=== PATIENT | female | born 1940 | race Caucasian/White ===

== ENCOUNTER 2018-09-22 10:42 | Inpatient (IN) | payer OTHER, MEDICAID ==
[2018-09-22] MEDS ORDERED: NS 1,000 ML IV ONE (10:50)
--- NOTE | 2018-09-22 10:56 | EDPHY ---
H & P Stated Complaint: generalized weakness, not feeling well, hip pain Time Seen by Provider: 09/22/18 10:44 HPI/ROS: CHIEF COMPLAINT: Difficulty ambulating HISTORY OF PRESENT ILLNESS: The patient is a 78-year-old female who comes to the emergency department via EMS. She told them that she had been feeling weak for the last month ever since she finished a 3 day course of Bactrim for urinary tract infection. She told paramedics that she was worried that if she fell down she could not get back up. Her daughter has been out of town for the last 3 days at a wedding. Patient denies generalized weakness to me but states however that she has left hip pain. 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 She denies any trauma. No fevers. No erythema or swelling. No urinary symptoms. She denies having weakness in her upper extremity or torso. No significant knee or ankle pain. No low back pain. Severity: Moderate Modifying factors: None REVIEW OF SYSTEMS: Constitutional: denies: chills, fever, recent illness, recent injury EENTM: denies: blurred vision, double vision, nose congestion Respiratory: denies: cough, shortness of breath Cardiac: denies: chest pain, irregular heart rate, lightheadedness, palpitations Gastrointestinal/Abdominal: denies: abdominal pain, diarrhea, nausea, vomiting, blood streaked stools Genitourinary: denies: dysuria, frequency, hematuria, pain Musculoskeletal: denies: joint pain, muscle pain Skin: denies: lesions, rash, jaundice, bruising Neurological: denies: headache, numbness, paresthesia, tingling, dizziness, weakness Hematologic/Lymphatic: denies: blood clots, easy bleeding, easy bruising Immunologic/allergic: denies: HIV/AIDS, transplant 10 systems reviewed and negative except as noted EXAM: GENERAL: Well-appearing, well-nourished and in no acute distress. HEAD: Atraumatic, normocephalic. EYES: Pupils equal round and reactive to light, extraocular movements intact, sclera anicteric, conjunctiva are normal. ENT: TMs normal, nares patent, oropharynx clear without exudates. Moist mucous membranes. NECK: Normal range of motion, supple without lymphadenopathy or JVD. LUNGS: Breath sounds clear to auscultation bilaterally and equal. No wheezes rales or rhonchi. HEART: Regular rate and rhythm without murmurs, rubs or gallops. ABDOMEN: Soft, nontender, normoactive bowel sounds. No guarding, no rebound. No masses appreciated. : Rectal exam normal, no obvious bleeding BACK: No CVA tenderness, no spinal tenderness, step-offs or deformities EXTREMITIES: Normal range of motion, no pitting or edema. No clubbing or cyanosis. Subjective pain in left hip. No appreciable pain with passive movement or axial loading. NEUROLOGICAL: Cranial nerves II through XII grossly intact. Normal speech, normal gait. 4-5 strength in left leg seems to be limited by pain, 5/5 in other extremities., normal movement in all extremities, normal sensation, normal reflexes PSYCH: Normal mood, normal affect. SKIN: Warm, dry, normal turgor, no visible rashes or lesions. Source: Patient Exam Limitations: No limitations - Personal History Current Tetanus/Diphtheria Vaccine: Unsure Current Tetanus Diphtheria and Acellular Pertussis (TDAP): Unsure - Medical/Surgical History Hx Asthma: Yes Hx Chronic Respiratory Disease: No Hx Diabetes: No Hx Cardiac Disease: No Hx Renal Disease: No Hx Cirrhosis: No Hx Alcoholism: No Hx HIV/AIDS: No Hx Splenectomy or Spleen Trauma: No - Family History Significant Family History: No pertinent family hx - Social History Smoking Status: Never smoked Alcohol Use: None Constitutional: Initial Vital Signs Temperature (C) 36.9 C 09/22/18 10:47 Heart Rate 93 09/22/18 10:47 Respiratory Rate 18 09/22/18 10:47 Blood Pressure 130/70 H 09/22/18 10:47 O2 Sat (%) 93 09/22/18 10:47 O2 Delivery Mode Room Air Allergies/Adverse Reactions: cat dander Allergy (Verified 09/22/18 13:44) cephalexin [From Keflex] Allergy (Verified 09/22/18 13:44) Hives Home Medications: Medication Instructions Recorded Chlorthalidone [Chlorthalidone 25 25 mg PO DAILY 09/22/18 mg (*)] Fluticasone Hfa 110 Mcg [Flovent 1 puffs IH DAILY@12 09/22/18 110 MCG Hfa MDI (*)] Herbals/Supplements -Info Only 1 ea PO DAILY 09/22/18 Ibuprofen [Motrin (*)] 200 mg PO DAILY PRN 09/22/18 Lisinopril [Zestril 5 mg (*)] 5 mg PO DAILY 09/22/18 Montelukast Sodium [Singulair 10 5 mg PO DAILY 09/22/18 mg (*)] Medical Decision Making - Diagnostics EKG Interpretation: An EKG obtained and was read and documented in trace view. Please see trace view for full reading and report. Sinus rhythm, no acute ischemic changes Imaging: Discussed imaging studies w/ call center analyst Radiologist ED Course/Re-evaluation: We discussed the patient's lab work and imaging thus far. Is somewhat unremarkable. The patient has not yet provided a urine sample. She states that she cannot walk at home because of the pain in her left hip and weakness. She will likely require admission. 1:00 p.m. urinalysis positive. Will start on antibiotics. She is allergic to cephalosporins. Spoke with hospitalist service who will admit to Dr. Morley's. Differential Diagnosis: Partial list of the Differential diagnosis considered include but were not limited to; urinary tract infection, generalized weakness, left hip pain and although unlikely based on the history and physical exam, I also considered septic joint, fracture, spinal injury. - Data Points Laboratory Results: Laboratory Results 09/22/18 10:47 09/22/18 10:47 Medications Given: Acetaminophen (Tylenol) 650 mg PO Q4HRS PRN PRN Reason: Pain, Mild/Fever, Can Take PO Stop: 03/21/19 14:23 Last Admin: 09/22/18 22:50 Dose: 650 mg Enoxaparin Sodium (Lovenox) 40 mg SC DAILY [facility] Stop: 03/22/19 08:59 Last Admin: 09/23/18 08:19 Dose: 40 mg Fluticasone Propionate (Flovent Hfa) 1 puffs IH DAILY@12 [facility] Stop: 03/22/19 11:59 Last Admin: 09/23/18 10:48 Dose: Not Given Levofloxacin (Levaquin) 750 mg PO DAILY AT 10AM [facility] PRN Reason: Protocol Stop: 10/23/18 09:59 Last Admin: 09/23/18 10:09 Dose: 750 mg Lisinopril (Zestril) 5 mg PO DAILY [facility] Stop: 03/22/19 08:59 Last Admin: 09/23/18 08:18 Dose: 5 mg Discontinued Medications Sodium Chloride (Ns) 1,000 mls @ 0 mls/hr IV EDNOW ONE; Wide Open PRN Reason: Protocol Stop: 09/22/18 10:51 Last Admin: 09/22/18 11:24 Dose: 1,000 mls Levofloxacin/Dextrose (Levaquin 750 Mg (Premix)) 150 mls @ 100 mls/hr IV EDNOW ONE PRN Reason: Protocol Stop: 09/22/18 14:31 Last Admin: 09/22/18 13:13 Dose: 150 mls Potassium Chloride (Klor-Con) 20 meq PO ONCE ONE Stop: 09/22/18 14:27 Last Admin: 09/22/18 15:47 Dose: 20 meq Potassium Chloride (Klor-Con) 20 meq PO ONCE ONE Stop: 09/23/18 07:52 Last Admin: 09/23/18 08:18 Dose: 20 meq Point of Care Test Results: Chemistry 09/22/18 11:02 POC Troponin I 0.00 ng/mL ng/mL (0.00-0.08) Departure - Departure Disposition: [facility] Acute Clinical Impression: Generalized weakness, Chronic left hip pain Urinary tract infection Qualifiers: Urinary tract infection type: acute cystitis Hematuria presence: without hematuria Qualified Code(s): N30.00 - Acute cystitis without hematuria Condition: Fair
[2018-09-22 11:10] LABS: PLATELET COUNT 283 10^3/uL (150-400)
[2018-09-22 11:25] LABS: CREATINE KINASE 26 IU/L (0-156)
--- NOTE | 2018-09-22 11:33 | CPEKG ---
Test Reason : OPEN Blood Pressure : / mmHG Vent. Rate : 085 BPM Atrial Rate : 086 BPM P-R Int : 168 ms QRS Dur : 103 ms QT Int : 398 ms P-R-T Axes : 036 -36 040 degrees QTc Int : 474 ms Sinus rhythm Atrial premature complex Probable left atrial enlargement Inferior infarct, old Confirmed by Benjie Dee ([id number]) on 09/22/2018 11:32:27 AM Referred By: Benjie Dee Confirmed By:Benjie Dee
[2018-09-22] MEDS ORDERED: ONDANSETRON DISINTEGRATING 4 MG TAB PO PRN (14:24)
[2018-09-22] MEDS ORDERED: ONDANSETRON 4 MG/2 ML VIAL IVP PRN (14:24)
[2018-09-22] MEDS ORDERED: POTASSIUM CL 20 MEQ TAB PO ONE (14:26)
[2018-09-22] MEDS: ACETAMINOPHEN 325 MG TAB PO PRN ×2 (15:47→22:50)
--- NOTE | 2018-09-22 16:02 | PDGENHP ---
History and Physical - Chief Complaint weakness, hip pain - History of Present Illness 78 yo female with h/o hypertension and recent UTI treated with short course of Bactrim presents to ED with weakness and left hip pain. She states her daughter left town and she doesn't have any assistance at home. She has been feeling weak since her UTI diagnosis and hasn't really improved despite a short course of Bactrim. She endorses flank pain and left hip pain. She denies fall or injury. No fevers/chills, N/V or diarrhea. No CP or SOB. She called 911 as she was concerned she would have a fall. In the ED, hip xray is negative. UA is suspicious for UTI. She is admitted for further management. History Information - Allergies/Home Medication List Allergies/Adverse Reactions: cat dander Allergy (Verified 09/22/18 13:44) cephalexin [From Keflex] Allergy (Verified 09/22/18 13:44) Hives Home Medications: Chlorthalidone [Chlorthalidone 25 mg (*)] 25 mg PO DAILY 09/22/18 [Last Taken ] Fluticasone Hfa 110 Mcg [Flovent 110 MCG Hfa MDI (*)] 1 puffs IH DAILY@12 [Last Taken 09/21/18] Herbals/Supplements -Info Only 1 ea PO DAILY 09/22/18 [Last Taken Unknown] Ibuprofen [Motrin (*)] 200 mg PO DAILY PRN 09/22/18 [Last Taken Unknown] Lisinopril [Zestril 5 mg (*)] 5 mg PO DAILY 09/22/18 [Last Taken 09/21/18] Montelukast Sodium [Singulair 10 mg (*)] 5 mg PO DAILY 09/22/18 [Last Taken ] I have personally reviewed and updated: family history, medical history, social history, surgical history - Past Medical History hypertension - Surgical History Additional surgical history: right WILD - Family History Positive for: non-pertinent - Social History Smoking Status: Never smoked Alcohol Use: None Drug Use: None Additional social history: [id number] in her daughter's home Review of Systems Review of Systems: ROS: 10pt was reviewed & negative except for what was stated in HPI & below Physical Exam Physical Exam: Temp Pulse Resp BP Pulse Ox 36.9 C 90 16 152/80 H 91 L 09/22/18 15:45 09/22/18 15:45 09/22/18 15:45 09/22/18 15:45 09/22/18 15:45 Constitutional: no apparent distress Eyes: PERRL Ears, Nose, Mouth, Throat: moist mucous membranes Cardiovascular: regular rate and rhythym Respiratory: no respiratory distress, clear to auscultation Gastrointestinal: other (soft, nd, +suprapubic tenderness, +BS) Lab Data & Imaging Review 09/22/18 10:47 09/22/18 10:47 WBC 9.75 10^3/uL (3.80-9.50) H 09/22/18 10:47 RBC 4.17 10^6/uL (4.18-5.33) L 09/22/18 10:47 Hgb 11.3 g/dL (12.6-16.3) L 09/22/18 10:47 Hct 35.3 % (38.0-47.0) L 09/22/18 10:47 MCV 84.7 fL (81.5-99.8) 09/22/18 10:47 MCH 27.1 pg (27.9-34.1) L 09/22/18 10:47 MCHC 32.0 g/dL (32.4-36.7) L 09/22/18 10:47 RDW 16.3 % (11.5-15.2) H 09/22/18 10:47 Plt Count 283 10^3/uL (150-400) 09/22/18 10:47 MPV 9.3 fL (8.7-11.7) 09/22/18 10:47 Neut % (Auto) 72.0 % (39.3-74.2) 09/22/18 10:47 Lymph % (Auto) 15.1 % (15.0-45.0) 09/22/18 10:47 Armstrong % (Auto) 9.4 % (4.5-13.0) 09/22/18 10:47 Eos % (Auto) 1.5 % (0.6-7.6) 09/22/18 10:47 Baso % (Auto) 0.6 % (0.3-1.7) 09/22/18 10:47 Nucleat RBC Rel Count 0.0 % (0.0-0.2) 09/22/18 10:47 Absolute Neuts (auto) 7.01 10^3/uL (1.70-6.50) H 09/22/18 10:47 Absolute Lymphs (auto) 1.47 10^3/uL (1.00-3.00) 09/22/18 10:47 Absolute Monos (auto) 0.92 10^3/uL (0.30-0.80) H 09/22/18 10:47 Absolute Eos (auto) 0.15 10^3/uL (0.03-0.40) 09/22/18 10:47 Absolute Basos (auto) 0.06 10^3/uL (0.02-0.10) 09/22/18 10:47 Absolute Nucleated RBC 0.00 10^3/uL (0-0.01) 09/22/18 10:47 Immature Gran % 1.4 % (0.0-1.1) H 09/22/18 10:47 Immature Gran # 0.14 10^3/uL (0.00-0.10) H 09/22/18 10:47 Sodium 137 mEq/L (135-145) 09/22/18 10:47 Potassium 3.2 mEq/L (3.5-5.2) L 09/22/18 10:47 Chloride 99 mEq/L (97-110) 09/22/18 10:47 Carbon Dioxide 24 mEq/l (22-31) 09/22/18 10:47 Anion Gap 14 mEq/L (6-14) 09/22/18 10:47 BUN 20 mg/dL (7-23) 09/22/18 10:47 Creatinine 0.8 mg/dL (0.6-1.0) 09/22/18 10:47 Estimated GFR > 60 09/22/18 10:47 Glucose 138 mg/dL (70-100) H 09/22/18 10:47 Calcium 10.3 mg/dL (8.5-10.4) 09/22/18 10:47 Total Bilirubin 1.0 mg/dL (0.1-1.4) 09/22/18 10:47 Conjugated Bilirubin 0.4 mg/dL (0.0-0.5) 09/22/18 10:47 Unconjugated Bilirubin 0.6 mg/dL (0.0-1.1) 09/22/18 10:47 AST 21 IU/L (14-46) 09/22/18 10:47 ALT 24 IU/L (9-52) 09/22/18 10:47 Alkaline Phosphatase 165 IU/L (38-126) H 09/22/18 10:47 Creatine Kinase 26 IU/L (0-156) 09/22/18 10:47 POC Troponin I 0.00 ng/mL (0.00-0.08) 09/22/18 11:02 Total Protein 7.6 g/dL (6.3-8.2) 09/22/18 10:47 Albumin 3.8 g/dL (3.5-5.0) 09/22/18 10:47 Urine Color YELLOW 09/22/18 12:15 Urine Appearance HAZY 09/22/18 12:15 Urine pH 6.0 (5.0-7.5) 09/22/18 12:15 Ur Specific [place] 1.012 (1.002-1.030) 09/22/18 12:15 Urine Protein NEGATIVE (NEGATIVE) 09/22/18 12:15 Urine Ketones NEGATIVE (NEGATIVE) 09/22/18 12:15 Urine Blood NEGATIVE (NEGATIVE) 09/22/18 12:15 Urine Nitrate POSITIVE (NEGATIVE) H 09/22/18 12:15 Urine Bilirubin NEGATIVE (NEGATIVE) 09/22/18 12:15 Urine Urobilinogen NEGATIVE EU (0.2-1.0) 09/22/18 12:15 Ur Leukocyte Esterase 3+ (NEGATIVE) H 09/22/18 12:15 Urine RBC 1-3 /hpf (0-3) 09/22/18 12:15 Urine WBC 50-182 /hpf (0-3) H 09/22/18 12:15 Ur Epithelial Cells TRACE /lpf (NONE-1+) 09/22/18 12:15 Urine Bacteria TRACE /hpf (NONE SEEN) H 09/22/18 12:15 Urine Mucus TRACE /lpf (NONE-1+) 09/22/18 12:15 Urine Glucose NEGATIVE (NEGATIVE) 09/22/18 12:15 Stool Occult Bld Scrn NEGATIVE (NEGATIVE) 09/22/18 12:15 Assessment & Plan Assessment: 78 yo female with recent UTI presents to ED with generalized weakness and left hip pain. UTI - Recently took short course of Bactrim, but hasn't felt well since. Symptoms unclear, denies dysuria or fevers, may have some urgency. -cont Levaquin, await Cx data Left hip pain - No trochanteric bursa tenderness, xray neg, pain is mostly in anterior groin region -PT/OT evals Hypokalemia - replace, hold chlorthalidone Hypertension - cont lisinopril, holding diuretic as above Weakness - could be related to UTI vs deconditioning -PT/OT Full code DVT PPLX - Lovenox Dispo - obs. Her daughter returns from out of state trip tomorrow. Seems pt was having trouble at home without assistance. PT/OT evals in am. May be able to dc home if does well. O/W change to inpt.
--- NOTE | 2018-09-22 16:28 | ASMTCMCOM ---
CM Note CM Note Notes: Patient admitted for UTI & weakness. She lives with dtr - dtr apparently out of town on a trip and will be returning tomorrow. PT/OT have been ordered, awaiting recommendations. Patient may benefit from some assistance at home in addition to her dtr. CM will follow-up post therapy evals. Plan: TBD Date Signed: 09/22/2018 04:27 PM Electronically Signed By:Nellie Dugan RN
[2018-09-23 05:09] LABS: PLATELET COUNT 234 10^3/uL (150-400)
[2018-09-23] MEDS ORDERED: POTASSIUM CL 20 MEQ TAB PO ONE (07:51)
[2018-09-23] MEDS: LISINOPRIL 5 MG TAB PO SCH (08:18)
[2018-09-23] MEDS: ENOXAPARIN 40 MG/0.4 ML SYR SC SCH (08:19)
[2018-09-23] MEDS ORDERED: MONTELUKAST SODIUM 10 MG TAB PO SCH (09:00)
[2018-09-23] MEDS: FLUTICASONE HFA 110 MCG MDI IH SCH (10:48)
--- NOTE | 2018-09-23 13:52 | HOSPPROG ---
Addendum entered and electronically signed by Jeimy Jo NP 09/23/18 15 :09: anemia: reviewed her PMH, this is lower than her baseline. stool OB screen is negative, will check iron studies. Original Note: Hospitalist Progress Note Assessment/Plan: 78 yo female with recent UTI presents to ED with generalized weakness and left hip pain. *UTI - Recently took short course of Bactrim, but hasn't felt well since -having some urgency -cont Levaquin, await Cx data (previous infection was sensitive to Levaquin) *Left hip pain - No trochanteric bursa tenderness, xray neg, pain is mostly in anterior groin region -PT/OT evaluated -will get pelvic x rays, pain increases w standing and is mainly in the groin area *Hypokalemia - replace, hold chlorthalidone *Hypertension - cont lisinopril, holding diuretic as above *Weakness - could be related to UTI vs deconditioning -daughter is oot and patient lives w her daughter -evaluated by PT and OT *plan: get pelvic x rays, see if she improves w PT and OT, will require another midnight stay; patient is not safe to return home on her own, will get further evaluation of pelvis Subjective: Marilu said she has been feeling poorly. Was using a cane to ambulate and hanging onto the furniture so she wouldn't fall. Objective: Vital Signs Temp Pulse Resp BP Pulse Ox 36.7 C 86 16 122/58 H 93 09/23/18 11:51 09/23/18 11:51 09/23/18 11:51 09/23/18 11:51 09/23/18 11:51 Laboratory Results 09/23/18 04:15 09/23/18 04:15 09/22/18 09/23/18 09/24/18 05:59 05:59 05:59 Intake Total 2049 Output Total 800 300 Balance 1250 -300 - Physical Exam Constitutional: appears nourished, uncomfortable Eyes: PERRL Ears, Nose, Mouth, Throat: hearing normal Cardiovascular: regular rate and rhythym Respiratory: no respiratory distress Gastrointestinal: normoactive bowel sounds Skin: warm Musculoskeletal: other (no tenderness in her groin area w palpation, says it's painful when she stands) Neurologic: AAOx3 Psychiatric: interacting appropriately ICD10 Worksheet Patient Problems: Problems Problem Status Onset Chronic left hip pain Acute Generalized weakness Acute Urinary tract infection Acute
--- NOTE | 2018-09-23 15:10 | ASMTCMCOM ---
CM Note CM Note Notes: Spoke with patient's daughter Isela who is trying to get home to [place] from [place]. She is currently in [place], [place] and scheduled to land in [place] Monday 09/25 at 0900. Patient lives in a basement studio apt w stairs to the entrance. Isela not comfortable w her d/c'ing home until she is back. We also discussed SNF, which is the current recommendation of PT/OT. I believe that this recommendation may change as patient recovers from UTI; however, I gave Isela names of [facility], [facility], and [facility] for her to research. Case Management will follow. Date Signed: 09/23/2018 03:10 PM Electronically Signed By:Cassia Freedman RN
[2018-09-23] MEDS: ACETAMINOPHEN 325 MG TAB PO PRN (17:15)
[2018-09-23] MEDS: MONTELUKAST SODIUM 10 MG TAB PO SCH (21:11)
--- NOTE | 2018-09-24 06:12 | PDMN ---
Medical Necessity Medical necessity: Pt meets IP criteria as of 09/23/18 per MD and MCG M-300 (UTI) ; los > 2 mn for ongoing tx and management of UTI that has persisted despite OP ABX as well as generalized weakness impairing the pt's ability to care for herself, hypokalemia and L hip pain; requiring PT/OT, electrolyte protocol with replacement, and further workup. Comorbid advanced age and HTN.
[2018-09-24] MEDS ORDERED: POTASSIUM CL 20 MEQ TAB PO ONE ×2 (09:09→10:00)
--- NOTE | 2018-09-24 09:16 | HOSPPROG ---
Hospitalist Progress Note Assessment/Plan: 78 yo female with recent UTI presents to ED with generalized weakness and left hip pain. *UTI -Recently took short course of Bactrim, but hasn't felt well since -cont Levaquin, urine cx shows e coli, awaiting sensitivities *Left hip pain -hip x ray neg, pain is mostly in anterior groin region -reviewed pelvic x rays-nothing acute noted -talked w her about further imaging and she does not want this *iron deficiency anemia -OB screen negative -doesn't want to take oral iron -she has not had a colonoscopy in the past, encouraged her to do this, she said she doesn't want any further w/u *Hypokalemia - replace, hold chlorthalidone *Hypertension - cont lisinopril *Weakness - could be related to UTI vs deconditioning -daughter is oot and patient lives w her daughter -discussed her care w PT, very difficult to tell the etiology of her weakness, has good strength but has difficulty walking -has some worsening anemia -suspect her weakness is from being lonely and needing more support *plan: recheck hgb and hct, continue supportive care, reviewed her care w CM with plans of going to SNF Subjective: yovanny is feeling better today, feels stronger, but too weak to go home. Objective: Vital Signs Temp Pulse Resp BP Pulse Ox 36.9 C 76 14 136/60 H 97 09/24/18 07:58 09/24/18 07:58 09/24/18 07:58 09/24/18 07:58 09/24/18 07:58 Laboratory Results 09/24/18 04:15 09/23/18 09/24/18 09/25/18 05:59 05:59 05:59 Intake Total 700 300 Output Total 1050 400 Balance -350 -100 - Physical Exam Constitutional: no apparent distress, appears nourished, not in pain Eyes: PERRL Ears, Nose, Mouth, Throat: hearing normal Cardiovascular: regular rate and rhythym Respiratory: no respiratory distress Gastrointestinal: normoactive bowel sounds Skin: warm Neurologic: AAOx3 Psychiatric: interacting appropriately ICD10 Worksheet Patient Problems: Problems Problem Status Onset Chronic left hip pain Acute Generalized weakness Acute Urinary tract infection Acute
[2018-09-24] MEDS: LISINOPRIL 5 MG TAB PO SCH (09:46)
[2018-09-24] MEDS: ENOXAPARIN 40 MG/0.4 ML SYR SC SCH (09:56)
[2018-09-24] MEDS: FLUTICASONE HFA 110 MCG MDI IH SCH (11:13)
[2018-09-24] MEDS: MONTELUKAST SODIUM 10 MG TAB PO SCH (22:17)
[2018-09-25] MEDS: ACETAMINOPHEN 325 MG TAB PO PRN ×2 (08:50→19:52)
[2018-09-25] MEDS: LISINOPRIL 5 MG TAB PO SCH (08:51)
[2018-09-25] MEDS: ENOXAPARIN 40 MG/0.4 ML SYR SC SCH (08:51)
--- NOTE | 2018-09-25 12:54 | HOSPPROG ---
Hospitalist Progress Note Assessment/Plan: # L hip pain - query hip flexor strain; - check CT to r/o occult fracture though doubt - cont PT/OT # UTI - cont levaquin (allergy to keflex) # anemia - studies c/w Fe defic and anemia of chronic disease - hgb stable - needs outpatient retesting # hypoK - hold chlorthalidone # htn - lisino Subjective: still with difficulty walking Objective: Vital Signs Temp Pulse Resp BP Pulse Ox 36.7 C 83 14 124/53 H 91 L 09/25/18 08:00 09/25/18 08:00 09/25/18 08:00 09/25/18 08:51 09/25/18 08:00 Laboratory Results 09/25/18 04:13 09/25/18 04:13 09/24/18 09/25/18 09/26/18 05:59 05:59 05:59 Intake Total 700 1150 250 Output Total 1050 1100 Balance -350 50 250 chart reviewed hip and pelvic XR personally reviewed - Physical Exam Constitutional: no apparent distress, appears nourished Cardiovascular: regular rate and rhythym, no murmur, rub, or gallop Respiratory: no respiratory distress, no rales or rhonchi, reduced air movement Gastrointestinal: soft, non-tender abdomen, no palpable masses, No guarding, No rebound, No distension Musculoskeletal: other (no pain with ROM) ICD10 Worksheet Patient Problems: Problems Problem Status Onset Generalized weakness Acute Urinary tract infection Acute Chronic left hip pain Acute
[2018-09-25] MEDS: FLUTICASONE HFA 110 MCG MDI IH SCH (14:09)
--- NOTE | 2018-09-25 14:38 | ASMTCMCOM ---
CM Note CM Note Notes: Pt dghtr Isela is back in the [facility] and is at bedside. SNF referrals sent to [facility], [facility], [facility] and [facility]. Pt and dghtr say they likely will choose [facility] with [facility] to come meet with them this afternoon. D/c plan of care: SNF tomorrow Date Signed: 09/25/2018 02:37 PM Electronically Signed By:IVONE Zavala
[2018-09-25] MEDS ORDERED: IOPAMIDOL (ISOVUE-300) 100 ML BTL ONE (18:27)
[2018-09-25] MEDS: MONTELUKAST SODIUM 10 MG TAB PO SCH (19:49)
[2018-09-26] MEDS: LISINOPRIL 5 MG TAB PO SCH (10:59)
[2018-09-26] MEDS: ENOXAPARIN 40 MG/0.4 ML SYR SC SCH (11:01)
--- NOTE | 2018-09-26 12:02 | HOSPPROG ---
Hospitalist Progress Note Assessment/Plan: # metastatic cancer, likely RCC - patient not interested in treatment; will consider options (discussed steroids, XRT, immunotherapy) - she would like to consider this overnight - pall care consult # femoral neck pathologic fx - non-operative per Dr Bey, WBAT # UTI - cont zaki rodriguez after tomorrow # anemia - more consistent with chronic disease, but low Fe sat # hypoK - hold chlorthalidone # htn - lisino # dispo - will need SNF Subjective: met with patient, dtr, Dr Dyer; we discussed goals of care, treatment options, etc Objective: Vital Signs Temp Pulse Resp BP Pulse Ox 36.9 C 83 16 142/64 H 92 09/26/18 07:41 09/26/18 07:41 09/26/18 07:41 09/26/18 10:59 09/26/18 07:41 Laboratory Results 09/25/18 04:13 09/25/18 04:13 09/25/18 09/26/18 09/27/18 05:59 05:59 05:59 Intake Total 1150 550 Output Total 1100 450 300 Balance 50 100 -300 - Time Spent With Patient Time Spent with Patient: greater than 35 minutes Time Spent with Patient: Greater than 35 minutes spent on this patients care, greater than 50% of time spent counseling, educating, and coordinating care regarding the above mentioned plan. - Physical Exam Constitutional: no apparent distress, appears nourished ICD10 Worksheet Patient Problems: Problems Problem Status Onset Generalized weakness Acute Urinary tract infection Acute Chronic left hip pain Acute
[2018-09-26] MEDS: FLUTICASONE HFA 110 MCG MDI IH SCH (13:20)
--- NOTE | 2018-09-26 13:37 | PDCONSULT ---
Event Sales Representative Note: PALLIATIVE CARE Per daughter Chela's request, Marilu Valiente was evaluated for [facility] during ED visit on 09/22/18 but deemed to be ineligible at the time. She was admitted to [facility] for weakness, UTI, and left hip pain. Met with patient and daughter Chela yesterday regarding palliative care services, which they readily accepted. Further testing has revealed lytic lesions with pathological femoral fx. Marilu has been diagnosed with metastatic cancer, likely RCC. She was seen by Dr. Wells and stated that she is not interested in treatment. I met with Marilu again today to discuss her recent cancer diagnosis. Although still surprised by the findings she says, 'I knew it when I was admitted. That' s why I called hospice. They all thought I was crazy, but I knew something wasn' t right.' Marilu tells me that she would like to start hospice as soon as she is eligible. I let her know that I will reach out to Drs. Greenberg and Priscilla regarding her request. I updated LINDSEY Luther and ABBY Ash, following today's visit. Fabi Armendariz NP
--- NOTE | 2018-09-26 13:48 | GCON ---
[f rep st] CONSULTATION MEDICAL ONCOLOGY CONSULTATION I was asked by Dr. Oscar Greenberg to evaluate this patient with hip pain and lytic lesions noted on CT scan. To review, this patient had a recent UTI and has had some hip pain that has been increasin g over some time. She was admitted to the hospital. Plain films of the hip were unremarkable. Rebolledo isma, a CT scan of the extremity showed lytic lesions in the left femoral neck anterior to the greater trochanter with a pathologic anterior cortical fracture, as well as a small lytic lesion in the left superior iliac wing. Given this, additional scans were done of the head, chest, abdomen, and pelvis . The abdominal CT scan showed a 12 x 11 cm mass replacing the right kidney with compression of the inferior vena cava. There was a 2 cm low-attenuation lesion in the liver. There were innumerable no dules in the lungs consistent with metastatic disease, including a 2.5 cm subcarinal lymph node and a 2.5 cm node in the upper mediastinum. PAST MEDICAL HISTORY: Significant for a distant history of breast cancer in 2000. She is status pos t a right total hip arthroplasty. She lives in her daughter's house. REVIEW OF SYSTEMS: Positive for left hip and pelvic pain. PHYSICAL EXAMINATION: VITAL SIGNS: Blood pressure 142/64, temp 98.5. SKIN: She is not icteric. I detect no adenopathy. LUNGS: Clear. CARDIAC: Unremarkable. ABDOMEN: Benign. LABORATORY: White count is 8000 with an unremarkable differential. Hemoglobin 9.5, hematocrit 29.7, platelets are 234,000. Chemistry panel shows an alk phos of 165. Iron studies are consistent with anemia of chronic disease. 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 She has a pathologic fracture of the left hip. My understanding is this has been reviewed by Radiology, and they feel this is nonoperable and patient should weight bear as tolerated. I discu ssed this at length with patient and her daughter in the presence of hospitalist, Dr. Shivam Greenberg. P atient is extremely reluctant to consider any type of diagnostic or therapeutic procedures. If she w anted to pursue some treatment, I would recommend a biopsy of one of the lesions to make sure we are dealing with a classic renal cell clear cell carcinoma. Treatment of choice would probably be immuno therapy, possibly with something such as Axitinib. She might benefit from radiation therapy to the h ip. Right now, she is leaning towards hospice. She may consider a trial of steroids for her hip juice n. We discussed the fact that renal cell carcinoma in this situation is not considered to be curable , although certainly some palliation and prolongation of survival might be a reasonable expectation. She will consider these issues. Our service will continue to follow with you. /[id number]/MODL
--- NOTE | 2018-09-26 16:50 | ASMTCMCOM ---
CM Note CM Note Notes: Pt has new cancer diagnosis. Palliative order provided to [facility] and Thelma Armendariz met with pt today, see note. Thelma to consult with oncology and hospitalist to determine next steps, pt states she wants hospice care. Today the SNF reps were told to hold off on visiting pt until d/c plan is clearer. CM will follow. Date Signed: 09/26/2018 04:50 PM Electronically Signed By:IVONE Zvaala
[2018-09-26] MEDS: MONTELUKAST SODIUM 10 MG TAB PO SCH (20:33)
--- NOTE | 2018-09-27 09:06 | HOSPPROG ---
Hospitalist Progress Note Assessment/Plan: 78 yo female with recent UTI presents to ED with generalized weakness and left hip pain. # metastatic cancer, likely RCC (renal cell carcinoma) -with metastasis to liver, lung and bone -palliative involved -appreciate Dr Wells -could consider steroids, XRT, immunotherapy # femoral neck pathologic fx - non-operative per Dr Bey, WBAT # UTI - cont levaquin, dc after today # anemia - more consistent with chronic disease, but low Fe sat # hypoK - hold chlorthalidone # htn - lisino # dispo - will need SNF Subjective: Marilu is feeling better today, not c/o pain Objective: Vital Signs Temp Pulse Resp BP Pulse Ox 36.8 C 82 16 124/56 H 94 09/27/18 07:22 09/27/18 07:22 09/27/18 07:22 09/27/18 07:22 09/27/18 07:22 Laboratory Results 09/25/18 04:13 09/25/18 04:13 09/26/18 09/27/18 09/28/18 05:59 05:59 05:59 Intake Total 550 750 Output Total 450 500 Balance 100 250 - Physical Exam Constitutional: no apparent distress, uncomfortable Eyes: PERRL Ears, Nose, Mouth, Throat: hearing normal Cardiovascular: regular rate and rhythym Respiratory: no respiratory distress Gastrointestinal: normoactive bowel sounds Skin: warm Musculoskeletal: generalized weakness Neurologic: AAOx3 Psychiatric: interacting appropriately ICD10 Worksheet Patient Problems: Problems Problem Status Onset Chronic left hip pain Acute Generalized weakness Acute Urinary tract infection Acute
[2018-09-27] MEDS: LISINOPRIL 5 MG TAB PO SCH (10:32)
[2018-09-27] MEDS: ENOXAPARIN 40 MG/0.4 ML SYR SC SCH (10:34)
--- NOTE | 2018-09-27 11:46 | ASMTCMCOM ---
CM Note CM Note Notes: Met with pt and dtr, pt feeling a little better today. Is agreeable to go to [facility], likely dc tomorrow, Tia at [facility] notified. DC Plan: SNF/ [facility] Date Signed: 09/27/2018 11:46 AM Electronically Signed By:Ly Georges RN
[2018-09-27] MEDS: FLUTICASONE HFA 110 MCG MDI IH SCH (12:02)
[2018-09-27] MEDS: MONTELUKAST SODIUM 10 MG TAB PO SCH (20:31)
[2018-09-28] MEDS: ACETAMINOPHEN 325 MG TAB PO PRN (00:46)
[2018-09-28 07:31] VITALS: BP 133/59
--- NOTE | 2018-09-28 08:29 | HOSPPROG ---
Hospitalist Progress Note Assessment/Plan: 78 yo female with recent UTI presents to ED with generalized weakness and left hip pain. # metastatic cancer, likely RCC (renal cell carcinoma) -with metastasis to liver, lung and bone -palliative involved -appreciate Dr Wells -could consider steroids, XRT, immunotherapy # femoral neck pathologic fx - non-operative per Dr Bey, WBAT # UTI - cont levaquin, dc after today # anemia - more consistent with chronic disease, but low Fe sat # hypoK - hold chlorthalidone # htn - lisino # dispo - to rehab today Subjective: Marilu feels ready for dc, would like to wait till her daughter Isela arrives. Objective: Vital Signs Temp Pulse Resp BP Pulse Ox 36.5 C 82 14 133/59 H 95 09/28/18 07:31 09/28/18 07:31 09/28/18 07:31 09/28/18 07:31 09/28/18 07:31 Laboratory Results 09/25/18 04:13 09/25/18 04:13 09/27/18 09/28/18 09/29/18 05:59 05:59 05:59 Intake Total 750 1780 Output Total 500 300 200 Balance 250 1480 -200 - Physical Exam Constitutional: no apparent distress, appears nourished, not in pain Eyes: PERRL Ears, Nose, Mouth, Throat: hearing normal Respiratory: no respiratory distress Skin: warm Neurologic: AAOx3 Psychiatric: interacting appropriately ICD10 Worksheet Patient Problems: Problems Problem Status Onset Chronic left hip pain Acute Generalized weakness Acute Urinary tract infection Acute
[2018-09-28] MEDS: ENOXAPARIN 40 MG/0.4 ML SYR SC SCH (09:25)
[2018-09-28] MEDS: LISINOPRIL 5 MG TAB PO SCH (09:25)
--- NOTE | 2018-09-28 09:31 | PDIAF ---
- Diagnosis Diagnosis: patholigic hip fx, concern for renal cell carcinoma, weakness Code Status: Full Code - Medication Management Discharge Medications: electronically signed and located in the Home Medication List. - Orders Services needed: Physical Therapy, Occupational Therapy Diet Recommendation: no restrictions on diet Diet Texture: Regular Texture Diet Additional Instructions: chlorthalidone was stopped due to low potassium levels, patient has done fine without this f/u with Dr Wells if she wants further evaluation of cancer has a left femoral neck pathologic fx, WBAT - Follow Up Care Current Providers and Referrals: Patient,NotPresent [Unknown] - As per Instructions Omero Wells MD [Medical Doctor] -
--- NOTE | 2018-09-28 10:09 | GDS ---
[f rep st] DISCHARGE SUMMARY DISCHARGE DIAGNOSES: 1. Metastatic cancer, likely renal cell carcinoma. 2. Femoral neck pathologic fracture. 3. Urinary tract infection. 4. Anemia. 5. Hypokalemia. 6. Hypertension. CONSULTATION: 1. Dr. Omero Wells. 2. Thelma Armendariz NP. HISTORY OF PRESENT ILLNESS AND HOSPITAL COURSE: Briefly, this patient is a 78-year-old female who wa s brought to the emergency room with left hip pain and difficulty with walking. It was noted that sh ruchi most likely had a urinary tract infection. The pain persisted. She had a pelvis x-ray that did no t show anything specific. Subsequently, the patient had a CT of her extremity. This showed a lytic lesion to the left femoral neck anterior to the greater trochanter with pathologic anterior cortical fractures as well as a small lytic lesion left superior iliac wing of both the SI joint and left duran sverse process of L4. She subsequently had an abdomen, chest, and head CT. The CT of the chest show ed extensive metastatic disease. Please see the imaging report. She has a large right renal mass, p resumably representing the primary malignancy associated with extensive metastatic disease. She was seen and evaluated by Dr. Wells, who made various recommendations. At this time, she would like pall iative care and hospice. She will be discharged to rehab facility. She can follow up with Dr. Wells if she would like to further discuss. HOSPITAL COURSE PER PROBLEM: 1. Metastatic cancer, likely renal cell carcinoma with involvement of liver, lung, and bone. She co uld consider steroids, XRT, or immunotherapy. Further followup with Dr. Wells. 2. Femoral neck pathologic fracture. She was evaluated by Dr. Bey. This is nonoperative. Weigh tbearing as tolerated. 3. Urinary tract infection, treated with Levaquin. 4. Anemia consistent with chronic disease. 5. Hypokalemia, holding her chlorthalidone. 6. Hypertension, on lisinopril. DISCHARGE CONDITION: Stable. Blood pressure is 133/59, O2 saturation on room air 95%, respiratory r ate is 14, pulse is 82, temperature 36.5 Celsius. MEDICATIONS AT DISCHARGE: Please see the EMR. DISCHARGE INSTRUCTIONS: 1. Weightbearing as tolerated. 2. Follow up with Dr. Wells if she should further decide any other treatment options. Greater than 30 minutes discharging and coordinating her care. /[id number]/MODL
--- NOTE | 2018-09-28 10:54 | ASMTLACE ---
LACE Length of stay for Answers: 4-6 days current admission Acuity / Level of Answers: Yes Care: Did the patient have an inpatient admission? Comorbidities - select Answers: Any tumor (including all that apply lymphoma or leukemia) Palliative care / End of life trajectory Other Notes: HTN # of Emergency department Answers: 1-2 visits in the last 6 months Score: 13 Date Signed: 09/28/2018 10:53 AM Electronically Signed By:Ly Georges RN
[2018-09-28] MEDS: FLUTICASONE HFA 110 MCG MDI IH SCH (11:20)
--- NOTE | 2018-09-28 16:55 | ASDISCHSUM ---
Discharge Information Plan Status:SNF Medically Cleared to Leave: Discharge Date:09/28/2018 02:45 PM D/C Disposition:Jail Facility ADT D/C Disposition:Jail Facility Projected Discharge Date:09/27/2018 11:00 AM Transportation at D/C:Wheelchair Van Discharge Delay Reason: Follow-Up Date:09/27/2018 11:00 AM Discharge Slot: Final Diagnosis: Placement Information Referral Type:*Correction/SNF Referral ID:[id number] Provider Name:Pankaj parker [place] Address 1:[address] Address 2: City:[place] Selection Factors: State:[place] Referral Type:Palliative Care Referral ID:[id number] Provider Name:[facility] [place] [facility] Address 1:[address] [place] Address 2: City:[place] Selection Factors: State:[place] Patient Contact Information Contact Name:FELIPE Relationship:Daughter Address:[address] Work Phone: City:[facility] [facility] Phone: [facility]/Zip Code:[place] [address] Email: Financial Information Financial Class:Medicare Primary Plan Desc:MEDICARE INPATIENT Primary Plan Number:[id number] Secondary Plan Desc:[place] Secondary Plan Number:[id number] Assessment Information LACE LACE Length of stay for Answers: 4-6 days current admission Acuity / Level of Answers: Yes Care: Did the patient have an inpatient admission? Comorbidities - select Answers: Any tumor (including all that apply lymphoma or leukemia) Palliative care / End of life trajectory Other Notes: HTN # of Emergency department Answers: 1-2 visits in the last 6 months Score: 13 Date Signed: 09/28/2018 10:53 AM Electronically Signed By:Ly Georges RN [facility] CM Progress Note CM Note CM Note Notes: Patient admitted for UTI & weakness. She lives with dtr - dtr apparently out of town on a trip and will be returning tomorrow. PT/OT have been ordered, awaiting recommendations. Patient may benefit from some assistance at home in addition to her dtr. CM will follow-up post therapy evals. Plan: TBD Date Signed: 09/22/2018 04:27 PM Electronically Signed By:Nellie Dugan RN [facility] CM Progress Note CM Note CM Note Notes: Spoke with patient's daughter Isela who is trying to get home to [place] from [place]. She is currently in [place], [place] and scheduled to land in [place] Monday 09/25 at 0900. Patient lives in a basement studio apt w stairs to the entrance. Isela not comfortable w her d/c'ing home until she is back. We also discussed SNF, which is the current recommendation of PT/OT. I believe that this recommendation may change as patient recovers from UTI; however, I gave Isela names of [facility], [facility], and [email or web address] for her to research. Case Management will follow. Date Signed: 09/23/2018 03:10 PM Electronically Signed By:Cassia Freedman RN [facility] CM Progress Note CM Note CM Note Notes: Pt dghtr Isela is back in town and is at bedside. SNF referrals sent to [facility], [facility], [facility] and [facility]. Pt and dghtr say they likely will choose [facility], Kisha with [facility] admissions to come meet with them this afternoon. D/c plan of care: SNF tomorrow Date Signed: 09/25/2018 02:37 PM Electronically Signed By:IVONE Zavala [facility] CM Progress Note CM Note CM Note Notes: Pt has new cancer diagnosis. Palliative order provided to [facility] and Thelma Armendariz met with pt today, see note. Thelma to consult with oncology and hospitalist to determine next steps, pt states she wants hospice care. Today the SNF reps were told to hold off on visiting pt until d/c plan is clearer. CM will follow. Date Signed: 09/26/2018 04:50 PM Electronically Signed By:IVONE Zavala [facility] CM Progress Note CM Note CM Note Notes: Met with pt and dtr, pt feeling a little better today. Is agreeable to go to [facility], likely dc tomorrow, Tia at [facility] notified. DC Plan: SNF/ [facility] Date Signed: 09/27/2018 11:46 AM Electronically Signed By:Ly Georges RN Intervention Information Intervention Type:*IM-Signed Date of Service:09/26/2018 02:58 PM Patient Type:Inpatient Staff Member:Raine Pena Hours: Discipline: Severity: Comment:
== END 2018-09-28 14:45 | DRG 687 ==
LOC: EDUNIT# → F3N 15:20 → OBSVTOIN 09-23 14:18
PROVIDERS: ADMIT Hospitalist; ATTEND Hospitalist
DX: C64.9 Malignant neoplasm of unspecified kidney, except renal pelvis (principal); M84.552A Pathological fracture in neoplastic disease, left femur, initial encounter for fracture; N39.0 Urinary tract infection, site not specified; C78.7 Secondary malignant neoplasm of liver and intrahepatic bile duct; C78.00 Secondary malignant neoplasm of unspecified lung; C79.51 Secondary malignant neoplasm of bone; E86.9 Volume depletion, unspecified; D63.0 Anemia in neoplastic disease; I10 Essential (primary) hypertension; E87.6 Hypokalemia; Z96.641 Presence of right artificial hip joint; Z85.3 Personal history of malignant neoplasm of breast
CPT/HCPCS: 84484-ER; 96365; 96366; 97116-GP; 97161-GP; 97166-GO; 97530-GO; 97530-GP; 97535-GO; G0378; J1650; J1956; Q9967

== ENCOUNTER 2018-10-06 20:54 | Inpatient (IN) | payer OTHER, MEDICAID ==
--- NOTE | 2018-10-06 21:18 | EDPHY ---
H & P Time Seen by Provider: 10/06/18 20:55 HPI/ROS: HPI Left hip injury. A 70-year-old female by ambulance from her half-way facility. This patient was admitted to our hospital recently from September 23 through September 28 with discharge diagnoses of metastatic cancer likely renal cell carcinoma, urinary tract infection, pathologic femoral neck fracture, anemia, hypokalemia and hypertension. She has been at a half-way facility since then. She was transferring from the toilet seat back to her wheelchair with assistance when there was a sudden pop heard and she had sudden severe left hip pain. On EMS arrival they noticed shortening of her left lower extremity relative to the right lower extremity. They established an IV. She was given 4 mg of IV Zofran and 100 mcg of IV fentanyl on the way to the emergency department. ROS: Constitutional: No fever, no chills. No weakness. Eyes: No discharge. No changes in vision. ENT: No sore throat. No nasal congestion or rhinorrhea. Respiratory: No cough. No shortness of breath. Cardiac: No chest pain, no palpitations. Gastrointestinal: No abdominal pain, no vomiting, no diarrhea. Genitourinary: No hematuria. No dysuria or increased frequency with urination. Musculoskeletal: No back pain. No neck pain. As above. She denies other extremity pain. Skin: No rashes. Neurological: No headache. No focal weakness or altered sensation. Past medical history: As above. Social history: Here with her and daughter. Nonsmoker. No alcohol. Physical Exam: General Appearance: Alert, she appears comfortable at this time. This patient is responding to questions appropriately and in full sentences. This patient appears well-hydrated and well-nourished. Eyes: Pupils equal and round no pallor or injection. No lid edema, erythema or injection. Head: Normocephalic atraumatic. Respiratory: There are no retractions, lungs are clear to auscultation anteriorly with good air movement bilaterally. Cardiovascular: Regular rate and rhythm. No murmur appreciate. Gastrointestinal: Abdomen is soft and nontender, no masses, bowel sounds normal. No focal tenderness at McBurney's point. No Keating sign. Neurological: Motor sensory function is grossly intact. Cranial nerves are normal. Gait is normal. Skin: Warm and dry, no rashes. Musculoskeletal: Neck is supple and nontender. Left lower extremity is about 3 cm shorter at the heel in comparison to the right lower extremity she has tenderness on light palpation proximal anterior left thigh. The left lower extremity is neurovascularly intact. Psychiatric: No agitation. No depression. Database: EKG: Imaging: Left hip x-ray series: Significant for a displaced left femoral neck fracture. Interpreted by me. Procedures: Emergency department course: Triage vital signs reviewed. She is mildly hypertensive. Vital signs are otherwise normal. Patient's presentation is consistent with a left hip fracture. X-rays were obtained at the half-way [facility], reports significant for acute injury trochanteric hip fracture. She was placed on a equipment monitor phototypesetting. An IV was established by EMS. Currently she does not require any further pain medication. Left hip x-ray series to be obtained. 10:00 p.m., discussed case with on-call hospitalist Dr. Hali Ibanez. She accepts this patient for admission primarily to the hospitalist service. Dr. Dante Yates of the Orthopedic service will be paged for consultation and further management. He is currently in house. 10:05 p.m., I discussed the case with on-call orthopedic surgeon Dr. Dante Yates. We reviewed the x-rays. He saw the patient in the emergency department. Plan for operative management tomorrow. Patient's remaining emergency department course under my care has been uneventful. Care plan discussed with the patient and family. All of their questions were answered. The patient was admitted in stable condition under the hospitalist service. Differential Diagnosis: The differential diagnosis on this patient includes but is not limited to left hip fracture. Hip dislocation, other significant traumatic injury the noted unlikely. This represents a partial list of diagnoses considered. These considerations are based on history, physical exam, past history, reassessment and diagnostic testing. Smoking Status: Never smoked Constitutional: Initial Vital Signs Temperature (C) 36.7 C 10/06/18 21:11 Heart Rate 93 10/06/18 21:11 Respiratory Rate 18 10/06/18 21:11 Blood Pressure 146/64 H 10/06/18 21:11 O2 Sat (%) 93 10/06/18 21:11 O2 Delivery Mode Nasal Cannula O2 (L/minute) 2 Allergies/Adverse Reactions: cat dander Allergy (Verified 10/06/18 21:11) cephalexin [From Keflex] Allergy (Verified 10/06/18 21:11) Hives morphine Allergy (Verified 10/06/18 22:14) Vomiting oxycodone [From OxyContin] Allergy (Verified 10/06/18 22:14) Vomiting Home Medications: Medication Instructions Recorded Fluticasone Hfa 110 Mcg [Flovent 1 puffs IH DAILY@12 09/22/18 110 MCG Hfa MDI (*)] Ibuprofen [Motrin (*)] 200 mg PO DAILY PRN 09/22/18 Lisinopril [Zestril 5 mg (*)] 5 mg PO DAILY 09/22/18 Montelukast Sodium [Singulair 10 5 mg PO DAILY PRN 09/22/18 mg (*)] Acetaminophen [Tylenol ES 500 mg 1,000 mg PO Q8HRS PRN tab 10/08/18 (*)] LORazepam [Ativan] 1 mg PO Q4 PRN #20 tablet 10/08/18 Ondansetron Odt [Zofran Odt 4 mg 4 mg PO Q4HRS PRN tab 10/08/18 (*)] Polyethylene Glycol 3350 [Miralax 17 gm PO DAILY pkt 10/08/18 17 gm (*)] Sennosides/Docusate Sodium 1 - 2 tab PO BID tab 10/08/18 [Senokot-S] morphINE [Roxanol 10 mg/0.5 ml 5 mg PO Q2HRS PRN udsyr 10/08/18 oral soln (*)] oxyCODONE CR [Oxycontin] 10 mg PO BID tab 10/08/18 Medical Decision Making - Data Points Laboratory Results: Laboratory Results 10/06/18 21:50 10/06/18 21:50 Medications Given: Discontinued Medications Diazepam (Valium) 2.5 mg IVP ONCALL ONE Stop: 10/08/18 15:24 Last Admin: 10/08/18 15:45 Dose: 2.5 mg Fluticasone Propionate (Flovent Hfa) 1 puffs IH DAILY@12 PATRICIA Stop: 04/05/19 11:59 Last Admin: 10/08/18 09:35 Dose: 1 puffs Hydromorphone HCl (Dilaudid) 0.25 mg IVP Q2HRS PRN PRN Reason: Pain, Severe Unable to Take PO Stop: 10/16/18 21:28 Last Admin: 10/06/18 21:31 Dose: 0.25 mg Hydromorphone HCl (Dilaudid) 0.2 mg IVP Q2HRS PRN PRN Reason: Breakthrough pain Stop: 10/16/18 21:28 Last Admin: 10/07/18 11:43 Dose: 0.2 mg Hydromorphone HCl (Dilaudid) 2 mg PO Q4HRS PRN PRN Reason: Pain, Severe Able to Take PO Stop: 10/16/18 22:24 Last Admin: 10/07/18 10:18 Dose: 2 mg Hydromorphone HCl (Dilaudid) 0.2 mg IVP Q1 PRN PRN Reason: Breakthrough pain Stop: 10/16/18 22:13 Last Admin: 10/07/18 12:12 Dose: 0.2 mg Lisinopril (Zestril) 5 mg PO DAILY PATRICIA Stop: 04/06/19 08:59 Last Admin: 10/08/18 09:08 Dose: 5 mg Morphine Sulfate (Roxanol Oral Solution) 5 mg PO Q2HRS PRN PRN Reason: Pain, Severe Stop: 10/17/18 12:12 Last Admin: 10/08/18 16:20 Dose: 5 mg Morphine Sulfate (Roxanol Oral Solution) 5 mg PO Q2HRS ONE Stop: 10/08/18 16:10 Last Admin: 10/08/18 16:51 Dose: Not Given Oxycodone HCl (Oxycontin) 10 mg PO BID PATRICIA Stop: 10/17/18 11:59 Last Admin: 10/08/18 09:08 Dose: 10 mg Polyethylene Glycol (Miralax) 17 gm PO DAILY PATRICIA PRN Reason: Protocol Stop: 04/06/19 08:59 Last Admin: 10/08/18 11:47 Dose: Not Given Senna/Docusate Sodium (Senokot-S) 1 - 2 tab PO BID PATRICIA PRN Reason: Protocol Stop: 04/05/19 20:59 Last Admin: 10/08/18 11:47 Dose: Not Given Departure - Departure Disposition: [facility] Acute Clinical Impression: Hip fracture, left Condition: Fair
[2018-10-06] MEDS ORDERED: HYDROmorphONE/DILAUDID 1 MG/ML INJ IVP PRN (21:29)
[2018-10-06 21:59] LABS: PLATELET COUNT 241 10^3/uL (150-400)
[2018-10-06 22:07] LABS: INR 1.18 (0.83-1.16); PROTIME(PATIENT) 14.5 SEC (12.0-15.0)
[2018-10-06] MEDS ORDERED: ONDANSETRON DISINTEGRATING 4 MG TAB PO PRN (22:11)
[2018-10-06] MEDS ORDERED: ACETAMINOPHEN 500 MG TAB PO PRN (22:11)
[2018-10-06] MEDS ORDERED: ONDANSETRON 4 MG/2 ML VIAL IVP PRN (22:11)
[2018-10-06] MEDS ORDERED: oxyCODONE IR 5 MG TAB PO PRN (22:11)
[2018-10-06] MEDS: HYDROmorphONE/DILAUDID 2 MG TAB PO PRN (23:13)
[2018-10-06] MEDS: HYDROmorphONE/DILAUDID 1 MG/ML INJ IVP PRN (23:21)
--- NOTE | 2018-10-06 23:37 | PDGENHP ---
History and Physical - Chief Complaint L hip pain - History of Present Illness 78 yo F w/ hx of newly diagnosed, metastatic RCC presents w/ L hip pain. She was admitted here 09/23-09/28 after developing L hip pain and difficulty walking. At that time she was found to have a pathologic fracture of the L femoral neck. New, metastatic RCC was also diagnosed at that time. Her fracture was deemed non -operative and she was discharged to SNF. Today, while transitioning from toilet to wheel chair she noted L hip pain and heard a pop. Her pain became much more severe after this. She was brought to the ED where work-up demonstrated acute L femoral neck fracture. She is being admitted for management of this. Her pain right now is well managed with Dilaudid. Case discussed with Dr. Ibanez; records reviewed and summarized above. History Information - Allergies/Home Medication List Allergies/Adverse Reactions: cat dander Allergy (Verified 10/06/18 21:11) cephalexin [From Keflex] Allergy (Verified 10/06/18 21:11) Hives morphine Allergy (Verified 10/06/18 22:14) Vomiting oxycodone [From OxyContin] Allergy (Verified 10/06/18 22:14) Vomiting Home Medications: Fluticasone Hfa 110 Mcg [Flovent 110 MCG Hfa MDI (*)] 1 puffs IH DAILY@12 [Last Taken 10/06/18 12:00] Ibuprofen [Motrin (*)] 200 mg PO DAILY PRN 09/22/18 [Last Taken Unknown] Lisinopril [Zestril 5 mg (*)] 5 mg PO DAILY 09/22/18 [Last Taken 10/06/18] Montelukast Sodium [Singulair 10 mg (*)] 5 mg PO DAILY PRN 09/22/18 [Last Taken 09/21/18] I have personally reviewed and updated: family history, medical history - Past Medical History hypertension - Surgical History Additional surgical history: right WILD - Family History Additional family history: Denies hx of RCC - Social History Smoking Status: Never smoked Additional social history: [place] in her daughter's home Review of Systems Review of Systems: ROS: 10pt was reviewed & negative except for what was stated in HPI & below Physical Exam Physical Exam: Temp Pulse Resp BP Pulse Ox 36.8 C 76 16 130/76 H 95 10/06/18 23:28 10/06/18 23:28 10/06/18 23:28 10/06/18 23:28 10/06/18 23:28 O2 (L/minute) 2 Constitutional: appears nourished, uncomfortable Eyes: PERRL, EOMI Ears, Nose, Mouth, Throat: no oral mucosal ulcers Cardiovascular: regular rate and rhythym, no murmur, rub, or gallop Respiratory: no respiratory distress, clear to auscultation Gastrointestinal: normoactive bowel sounds, soft, non-tender abdomen Skin: warm, normal color Musculoskeletal: pain with ROM (L hip), No asymmetric calves Neurologic: AAOx3, CN II-XII Intact Psychiatric: interacting appropriately, not anxious Lab Data & Imaging Review 10/06/18 21:50 10/06/18 21:50 WBC 9.43 10^3/uL (3.80-9.50) 10/06/18 21:50 RBC 3.37 10^6/uL (4.18-5.33) L 10/06/18 21:50 Hgb 9.2 g/dL (12.6-16.3) L 10/06/18 21:50 Hct 29.4 % (38.0-47.0) L 10/06/18 21:50 MCV 87.2 fL (81.5-99.8) 10/06/18 21:50 MCH 27.3 pg (27.9-34.1) L 10/06/18 21:50 MCHC 31.3 g/dL (32.4-36.7) L 10/06/18 21:50 RDW 16.6 % (11.5-15.2) H 10/06/18 21:50 Plt Count 241 10^3/uL (150-400) 10/06/18 21:50 MPV 9.0 fL (8.7-11.7) 10/06/18 21:50 Neut % (Auto) 81.8 % (39.3-74.2) H 10/06/18 21:50 Lymph % (Auto) 7.7 % (15.0-45.0) L 10/06/18 21:50 [place] % (Auto) 7.5 % (4.5-13.0) 10/06/18 21:50 Eos % (Auto) 0.4 % (0.6-7.6) L 10/06/18 21:50 Baso % (Auto) 0.4 % (0.3-1.7) 10/06/18 21:50 Nucleat RBC Rel Count 0.0 % (0.0-0.2) 10/06/18 21:50 Absolute Neuts (auto) 7.70 10^3/uL (1.70-6.50) H 10/06/18 21:50 Absolute Lymphs (auto) 0.73 10^3/uL (1.00-3.00) L 10/06/18 21:50 Absolute Monos (auto) 0.71 10^3/uL (0.30-0.80) 10/06/18 21:50 Absolute Eos (auto) 0.04 10^3/uL (0.03-0.40) 10/06/18 21:50 Absolute Basos (auto) 0.04 10^3/uL (0.02-0.10) 10/06/18 21:50 Absolute Nucleated RBC 0.00 10^3/uL (0-0.01) 10/06/18 21:50 Immature Gran % 2.2 % (0.0-1.1) H 10/06/18 21:50 Immature Gran # 0.21 10^3/uL (0.00-0.10) H 10/06/18 21:50 PT 14.5 SEC (12.0-15.0) 10/06/18 21:50 INR 1.18 (0.83-1.16) H 10/06/18 21:50 APTT 31.9 SEC (23.0-38.0) 10/06/18 21:50 Sodium 131 mEq/L (135-145) L 10/06/18 21:50 Potassium 4.1 mEq/L (3.5-5.2) 10/06/18 21:50 Chloride 101 mEq/L (97-110) 10/06/18 21:50 Carbon Dioxide 24 mEq/l (22-31) 10/06/18 21:50 Anion Gap 6 mEq/L (6-14) 10/06/18 21:50 BUN 15 mg/dL (7-23) 10/06/18 21:50 Creatinine 0.6 mg/dL (0.6-1.0) 10/06/18 21:50 Estimated GFR > 60 10/06/18 21:50 Glucose 140 mg/dL (70-100) H 10/06/18 21:50 Calcium 9.5 mg/dL (8.5-10.4) 10/06/18 21:50 Imaging Review: Imaging Impressions Hip X-Ray 10/06/18 21:14 Impression: Acute left femoral neck oblique angulated basicervical fracture with extension through the greater trochanter. Assessment & Plan Assessment: 78 yo F w/ newly diagnosed metastatic RCC presents w/ L hip fracture. Plan: 1. L hip fracture - XR (personally reviewed/interpreted) demonstrates acute left femoral neck oblique angulated basicervical fracture with extension through the greater trochanter. This is likely related to pathologic fracture noted during recent admission. - Orthopedic surgery consulted - NPO @ [facility] - Pain control with APAP and Dilaudid PO/IV 2. Metastatic RCC - This was diagnosed during most recent admission in September. She discussed with oncology at that time and opted for comfort measures only. - Pain control - Confirmed DNR, ordered in EMR 3. HTN - Continue home medications pending reconciliation 4. Anemia - Perhaps related to malignancy, no signs of acute bleeding. - Monitor CBC 5. Hyponatremia - Possibly SIADH in setting of severe pain. - Monitor BMP Diet - NPO @ [place] Code - DNR Ppx - SCDs Dispo - Admit under inpatient status
[2018-10-07] MEDS: HYDROmorphONE/DILAUDID 2 MG TAB PO PRN ×2 (04:01→10:18)
[2018-10-07 05:00] LABS: PLATELET COUNT 244 10^3/uL (150-400)
[2018-10-07] MEDS: HYDROmorphONE/DILAUDID 1 MG/ML INJ IVP PRN ×3 (05:09→11:43)
--- NOTE | 2018-10-07 05:30 | GCON ---
[f rep st] CONSULTATION EMERGENCY DEPARTMENT CONSULTATION DATE OF CONSULTATION: 10/06/2018 CHIEF COMPLAINT: Left hip pain. HISTORY OF PRESENT ILLNESS: The patient is a 78-year-old woman who was brought by ambulance from [facility] . She was discharged recently with a new diagnosis of metastatic renal cell carcinoma and a patholog ical left femoral neck fracture. She has other medical problems as well. She states she was transfe rring from the toilet seat when she had a sudden pop and severe left hip pain. She had inability to move around or ambulate, was brought for further evaluation. X-rays demonstrate a left femoral neck fracture. Review of previous x-rays and CT scan demonstrates a femoral neck fracture and lytic lesio n previously consistent with the above features. PAST MEDICAL HISTORY: As above. PAST SURGICAL HISTORY: She had a right hip [place] [address] Parmar. MEDICATIONS: See chart. ALLERGIES: As above. OBJECTIVE: This is an elderly woman who is pleasant, cooperative with examination. She has a signif icant other and daughter at the bedside. No examination was performed at this time. In discussion of the fracture, her cancer, and possible options, she is currently leaning toward hosp ice treatment. She does not wish any surgical intervention and voices this at this time. I have out lined conservative treatment and what that would likely entail with limited mobility, difficulty sitt ing, toileting, basic function. This would almost certainly lead to hospice referral. She states chikis hopper has been told that she has 2-4 months to live from renal cell carcinoma currently. I have recommen ded that she discuss this with her family. If she wishes surgical intervention for a total hip repla cement on the left side, I am happy to discuss this with her further at that time. I will see her in the morning to continue the discussion. /[id number]/MODL
--- NOTE | 2018-10-07 10:35 | HOSPPROG ---
Hospitalist Progress Note Assessment/Plan: 78 yo F w/ newly diagnosed metastatic RCC presents w/ L hip fracture. First encounter, chart reviewed. Discussed her care w Dr Yates. *left hip fx (reviewed hip x ray myself) -supportive care -patient and daughter are ready for Hospice -pain is severe, added long acting OxyContin -add Roxanol, increase frequency of IV Dilaudid -will add bowel protocol *Metastatic RCC -comfort measures *htn -lisinopril *Anemia *hyponatremia -resolved *plan: orders for [facility] in place, spoke w KARLOS and they will ask for a consult. Goal is to keep Marilu comfortable. Subjective: Marilu is tearful, doesn't want to turn on her side. Objective: Vital Signs Temp Pulse Resp BP Pulse Ox 36.9 C 79 16 113/79 95 10/07/18 08:00 10/07/18 08:00 10/07/18 08:00 10/07/18 08:00 10/07/18 08:00 Laboratory Results 10/07/18 04:20 10/07/18 04:20 10/06/18 10/07/18 10/08/18 05:59 05:59 05:59 Intake Total 100 Output Total 75 Balance 25 PT 14.5 SEC (12.0-15.0) 10/06/18 21:50 INR 1.18 (0.83-1.16) H 10/06/18 21:50 - Physical Exam Constitutional: uncomfortable, No not in pain Eyes: PERRL Ears, Nose, Mouth, Throat: hearing normal Cardiovascular: regular rate and rhythym Respiratory: no respiratory distress Gastrointestinal: distension Skin: warm Musculoskeletal: muscular tenderness Neurologic: AAOx3 Psychiatric: interacting appropriately, thought process linear, other (tearful ) ICD10 Worksheet Patient Problems: Problems Problem Status Onset Hip fracture, left Acute Chronic left hip pain Acute Generalized weakness Acute Urinary tract infection Acute
[2018-10-07] MEDS ORDERED: MONTELUKAST SODIUM 10 MG TAB PO PRN (11:43)
[2018-10-07] MEDS ORDERED: HYDROmorphONE/DILAUDID 1 MG/ML INJ IVP PRN ×2 (11:54→17:21)
[2018-10-07] MEDS ORDERED: MAGNESIUM HYDROXIDE 30 ML UDCUP PO PRN (11:55)
[2018-10-07] MEDS ORDERED: LACTULOSE 20 GM/30 ML UDCUP PO PRN (11:55)
[2018-10-07] MEDS ORDERED: BISACODYL 10 MG SUPP PR PRN (11:55)
--- NOTE | 2018-10-07 12:12 | ASMTCMCOM ---
CM Note CM Note Notes: CM reviewed pt's chart and spoke to pt's hospitalist re discharge plan. Pt is a 78 y/o female with renal cell carcinoma with metastas. She was most recently here from 09/23 to 09/28 after developing left hip pain and difficulty walking. She was discharged to [facility] in [place]. At that time she was found to have a non-operative pathological fracture of the femoral neck. Yesterday while transitioning from toilet to wheelchair she noted L hip pain and heard a pop. She was admitted for management of pain. Pt's hospitalist has requested a concult with [facility]. Referral has been made. D/C Plans: TBD Date Signed: 10/07/2018 12:11 PM Electronically Signed By:Radha Tellez
--- NOTE | 2018-10-07 12:37 | PDMN ---
Medical Necessity Medical necessity: Pt meets IP criteria per MD & MCG MG-MD Musculoskeletal Disease; est los >2 mn for eval/tx of acute L femoral neck fx likely r/t recent pathologic fx; admit for further monitoring, Ortho/Hospice consults & pain management; hx newly diagnosed renal cell carcinoma; per H&P & order 10/06/18
[2018-10-07] MEDS: FLUTICASONE HFA 110 MCG MDI IH SCH (12:43)
[2018-10-07] MEDS: morphINE 10 MG/0.5 ML UDSYR PO PRN ×3 (14:18→21:35)
--- NOTE | 2018-10-07 18:15 | SOAPPROG ---
[facility] Progress Note Assessment/Plan: Assessment: left femoral neck fracture Plan: no additional examination performed. spent 30 min in seated discussion with patient and family. we discussed both surgical replacement and hospice palliative care. I do feel that surgical intervention is very high risk given the presence of metastatic renal cell cancer in the operative site. This jeopardizes sx intervention secondary to acute hemorrhage issues and stable implantation of a hip prosthesis. I feel that the patient with a 2 month life expectancy is likely a better hospice candidate. I have recommended palliative care. I will continue to follow. 10/07/18 18:11 Objective: Vital Signs Temp Pulse Resp BP Pulse Ox 37.0 C 91 17 134/62 H 90 L 10/07/18 11:51 10/07/18 11:51 10/07/18 11:51 10/07/18 11:51 10/07/18 11:51 Laboratory Results 10/07/18 04:20 10/07/18 04:20 10/06/18 10/07/18 10/08/18 05:59 05:59 05:59 Intake Total 100 100 Output Total 75 Balance 25 100 PT 14.5 SEC (12.0-15.0) 10/06/18 21:50 INR 1.18 (0.83-1.16) H 10/06/18 21:50 ICD10 Worksheet Patient Problems: Problems Problem Status Onset Hip fracture, left Acute Chronic left hip pain Acute Generalized weakness Acute Urinary tract infection Acute
[2018-10-07] MEDS: SENNOSIDES/DOCUSATE SODIUM TAB PO SCH (21:38)
[2018-10-08] MEDS: morphINE 10 MG/0.5 ML UDSYR PO PRN ×4 (04:59→16:20)
--- NOTE | 2018-10-08 08:33 | SOAPPROG ---
SOAP Progress Note Assessment/Plan: Assessment: left femoral neck fracture Plan: no additional examination performed. spent 30 min in seated discussion with patient and family. we discussed both surgical replacement and hospice palliative care. I do feel that surgical intervention is very high risk given the presence of metastatic renal cell cancer in the operative site. This jeopardizes sx intervention secondary to acute hemorrhage issues and stable implantation of a hip prosthesis. I feel that the patient with a 2 month life expectancy is likely a better hospice candidate. I have recommended palliative care. I will continue to follow. no additional ortho recommendations. hospice f/u. palliative measures. patient is at peace with her decision 10/07/18 18:11 10/08/18 08:32 Objective: Vital Signs Temp Pulse Resp BP Pulse Ox 36.1 C 84 16 127/61 H 94 10/07/18 21:38 10/07/18 21:38 10/07/18 21:38 10/07/18 21:38 10/07/18 21:38 Laboratory Results 10/07/18 04:20 10/07/18 04:20 10/07/18 10/08/18 10/09/18 05:59 05:59 05:59 Intake Total 100 450 Output Total 75 Balance 25 450 PT 14.5 SEC (12.0-15.0) 10/06/18 21:50 INR 1.18 (0.83-1.16) H 10/06/18 21:50 ICD10 Worksheet Patient Problems: Problems Problem Status Onset Hip fracture, left Acute Chronic left hip pain Acute Generalized weakness Acute Urinary tract infection Acute
[2018-10-08] MEDS ORDERED: LISINOPRIL 5 MG TAB PO SCH (09:00)
[2018-10-08] MEDS ORDERED: POLYETHYLENE GLYCOL 3350 17 GM PKT PO SCH (09:00)
--- NOTE | 2018-10-08 09:34 | ASMTCMCOM ---
CM Note CM Note Notes: Spoke with Marcela at [facility] and she will send out a nurse today to meet with family. CM to follow for needs. Plan: DC with hospice care. Date Signed: 10/08/2018 09:34 AM Electronically Signed By:Yoanna Luu RN
[2018-10-08] MEDS: FLUTICASONE HFA 110 MCG MDI IH SCH (09:35)
--- NOTE | 2018-10-08 09:47 | HOSPPROG ---
Hospitalist Progress Note Assessment/Plan: 78 yo F w/ newly diagnosed metastatic RCC presents w/ L hip fracture. First encounter, chart reviewed. Discussed her care w Dr Yates. *pathologic left hip fx -supportive care -patient and daughter are ready for Hospice -Roxanol has given her good relief *Metastatic RCC -comfort measures *htn -lisinopril *Anemia *hyponatremia -resolved *plan: orders for [facility] in place, spoke w CM and hospice will be by today. Patient is wet w urine, doesn't want to move, doesn't want a moncada due to pain, told her I'd medicate prior to placement, but she said she is fine. Subjective: Marilu is comfortable and doesn't want to move. Objective: Vital Signs Temp Pulse Resp BP Pulse Ox 36.1 C 84 16 127/61 H 94 10/07/18 21:38 10/07/18 21:38 10/07/18 21:38 10/07/18 21:38 10/07/18 21:38 Laboratory Results 10/07/18 04:20 10/07/18 04:20 10/07/18 10/08/18 10/09/18 05:59 05:59 05:59 Intake Total 100 450 Output Total 75 Balance 25 450 PT 14.5 SEC (12.0-15.0) 10/06/18 21:50 INR 1.18 (0.83-1.16) H 10/06/18 21:50 - Physical Exam Constitutional: not in pain, chronically ill appearing Eyes: PERRL Ears, Nose, Mouth, Throat: hearing normal Respiratory: no respiratory distress Skin: warm Neurologic: AAOx3 Psychiatric: interacting appropriately ICD10 Worksheet Patient Problems: Problems Problem Status Onset Hip fracture, left Acute Chronic left hip pain Acute Generalized weakness Acute Urinary tract infection Acute
[2018-10-08] MEDS: SENNOSIDES/DOCUSATE SODIUM TAB PO SCH (11:47)
[2018-10-08 14:53] VITALS: BP 114/52
[2018-10-08] MEDS ORDERED: DIAZEPAM 5 MG/ML 1 ML SYR IVP ONE (15:23)
--- NOTE | 2018-10-08 15:39 | PDIAF ---
- Diagnosis Diagnosis: pathologic hip fx, renal cell carcinoma Code Status: Do Not Resuscitate - Medication Management Discharge Medications: electronically signed and located in the Home Medication List. - Orders Diet Recommendation: no restrictions on diet Diet Texture: Regular Texture Diet Additional Instructions: Care per hospice - Follow Up Care Current Providers and Referrals: Jennifer Chavez PA [Primary Care Provider] - As per Instructions
--- NOTE | 2018-10-08 15:46 | ASMTDCNOTE ---
Case Management Discharge Discharge Order Complete? Answers: Yes Patient to Obtain Answers: Other Notes: [facility] Medications Transportation Arranged Answers: [facility] will Pick (Date 10/08/2018 04:15 AM & Time) Faxed Final Orders Answers: Yes Agency/Facility Transfer Answers: Yes Report Printed & Faxed to Receiving Agency Family Notified Answers: Yes Discharge Comments Notes: Patient and family seen by [facility] inspector insulation. Will transition to inpatient care center today. Final orders to [facility] with discharge summary. Transportation set up by [facility] and PCS done by [facility] RN. Date Signed: 10/08/2018 03:45 PM Electronically Signed By:Yoanna Luu RN
--- NOTE | 2018-10-08 15:48 | ASMTLACE ---
LACE Length of stay for Answers: 2 days current admission Acuity / Level of Answers: Yes Care: Did the patient have an inpatient admission? Comorbidities - select Answers: Any tumor (including all that apply lymphoma or leukemia) Other Notes: htn # of Emergency department Answers: 1-2 visits in the last 6 months Score: 9 Date Signed: 10/08/2018 03:47 PM Electronically Signed By:Yoanna Luu RN
[2018-10-08] MEDS ORDERED: morphINE 10 MG/0.5 ML UDSYR PO ONE (16:09)
--- NOTE | 2018-10-08 16:15 | GDS ---
[f rep st] DISCHARGE SUMMARY DISCHARGE DIAGNOSES: 1. Pathologic left hip fracture. 2. Metastatic renal cell carcinoma. 3. Hypertension. 4. Anemia. 5. Hyponatremia. CONSULTATION DURING HER STAY: Dr. Dante Yates. HISTORY OF PRESENT ILLNESS: Briefly, the patient is a very sweet 78-year-old female who was recently diagnosed with metastatic renal cell carcinoma on her last admission. She presented to the emergency room with left hip pain. On her last admission, her fracture was deemed nonoperative and she was discharged to a group home facility. While she was at the nursing facility, she heard a pop in her left hip. She was seen and evaluated by Dr. Yates and he discussed with her about surgical replacement and hospice palliative care. He did not feel surgical intervention would help her. Given the presence of her metastatic renal cell cancer at the operative site. The patient prefers no treatment and wants to be on comfort measures. She will be discharged to inpatient hospice today. DISCHARGE CONDITION: Stable. Blood pressure is 114/52, heart rate of 81, respiratory rate is 16, O2 sat on 2 L is 93%, temperature is 36.3 Celsius. MEDICATIONS AT DISCHARGE: Please see the EMR. DISCHARGE INSTRUCTIONS: Care per hospice. Greater than 30 minutes discharging and coordinating the patient's care. /[id number]/MODL MTDD
--- NOTE | 2018-10-09 12:57 | ASDISCHSUM ---
Discharge Information Plan Status: Medically Cleared to Leave: Discharge Date:10/08/2018 04:24 PM CM D/C Disposition: ADT D/C Disposition:Hospice Facility Projected Discharge Date:10/09/2018 11:00 AM Transportation at D/C: Discharge Delay Reason: Follow-Up Date:10/09/2018 11:00 AM Discharge Slot: Final Diagnosis: Placement Information Referral Type:*Hospice Referral ID:[id number] Provider Name:[facility] Address 1:[address] Address 2: City:[place] Selection Factors: State:[place] Patient Contact Information Contact Name:FELIPE Relationship:Daughter Address:[address] Work Phone: [facility]:[place] Alternate Phone: State/Zip Code:[place] [address] Email: Financial Information Financial Class:Medicare Primary Plan Desc:MEDICARE INPATIENT Primary Plan Number:[id number] Secondary Plan Desc:MED[place] Secondary Plan Number:[id number] Assessment Information LACE LACE Length of stay for Answers: 2 days current admission Acuity / Level of Answers: Yes Care: Did the patient have an inpatient admission? Comorbidities - select Answers: Any tumor (including all that apply lymphoma or leukemia) Other Notes: htn # of Emergency department Answers: 1-2 visits in the last 6 months Score: 9 Date Signed: 10/08/2018 03:47 PM Electronically Signed By:Yoanna Luu RN [facility] CM Progress Note CM Note CM Note Notes: CM reviewed pt's chart and spoke to pt's hospitalist re discharge plan. Pt is a 78 y/o female with renal cell carcinoma with metastas. She was most recently here from 09/23 to 09/28 after developing left hip pain and difficulty walking. She was discharged to [facility] in [place]. At that time she was found to have a non-operative pathological fracture of the femoral neck. Yesterday while transitioning from toilet to wheelchair she noted L hip pain and heard a pop. She was admitted for management of pain. Pt's hospitalist has requested a concult with [facility] hospice. Referral has been made. D/C Plans: TBD Date Signed: 10/07/2018 12:11 PM Electronically Signed By:Radha Tellez [facility] Progress Note CM Note CM Note Notes: Spoke with Marcela at [facility] and she will send out a nurse today to meet with family. KARLOS to follow for needs. Plan: DC with hospice care. Date Signed: 10/08/2018 09:34 AM Electronically Signed By:Yoanna Luu RN Case Management Discharge Plan Note Case Management Discharge Discharge Order Complete? Answers: Yes Patient to Obtain Answers: Other Notes: [facility] Medications Transportation Arranged Answers: [facility] will Pick (Date 10/08/2018 04:15 AM & Time) Faxed Final Orders Answers: Yes Agency/Facility Transfer Answers: Yes Report Printed & Faxed to Receiving Agency Family Notified Answers: Yes Discharge Comments Notes: Patient and family seen by [facility] skin care instructor. Will transition to inpatient care center today. Final orders to [facility] with discharge summary. Transportation set up by [facility] and PCS done by [facility] RN. Date Signed: 10/08/2018 03:45 PM Electronically Signed By:Yoanna Luu RN Intervention Information
== END 2018-10-08 16:24 | disposition hospice, home (50) | DRG 543 ==
LOC: EDUNIT# → F3N 23:00
PROVIDERS: ADMIT Internal Medicine; ATTEND Internal Medicine
DX: M84.552A Pathological fracture in neoplastic disease, left femur, initial encounter for fracture (principal); C64.9 Malignant neoplasm of unspecified kidney, except renal pelvis; G89.3 Neoplasm related pain (acute) (chronic); I10 Essential (primary) hypertension; E87.1 Hypo-osmolality and hyponatremia; D64.9 Anemia, unspecified; Z87.440 Personal history of urinary (tract) infections; Z66 Do not resuscitate
CPT/HCPCS: 96374; J1170; J3360